=== PATIENT | male | born 1970 | race Caucasian/White ===

== ENCOUNTER 2020-05-24 11:17 | Inpatient (IN) | payer MEDICAID ==
[~2020-05-24] VITALS: Ht 180.3 cm; Wt 154.7 kg
--- NOTE | ~2020-05-24 | EC ---
PATIENT:ALISIA MYLES DATE OF SERVICE: 05/24/20 SEX: M MEDICAL RECORD: [id number] DATE OF : [birth year] LOCATION:D.M2 D.213 AGE OF PATIENT: 49 ADMISSION DATE: 05/24/20 REFERRING PHYSICIAN: INTERPRETING PHYSICIAN: ISABEL JONES MD ECHOCARDIOGRAM REPORT ECHO CHARGES 4 ECHO COMPLETE Date: 06/01/20 CLINICAL DIAGNOSIS: CHF ECHOCARDIOGRAPHIC MEASUREMENTS (adult normal given) AC root (d.<3.7cm) 2.9 cm LV Septum d (<1.2 cm> 1.1 cm Valve Excursion 1.5 cm LV Septum (systole) 1.8 cm Left Atria (s.<4.0cm> 4.9 cm LVPW d(<1.2cm) 0.9 cm RV (d.<2.3cm) 3.8 cm LVPW (sytole) 1.3 cm LV diastole(<5.6CM) 6.5 cm MV E-F(>70mm/sec) cm LV systole 4.5 cm LVOT Diameter 1.8 cm MV exc.(>10mm) cm Est.ejection fraction (50-75%) % DOPPLER: LVIT cm/sec A 62 cm/sec E 79 cm/sec LA cm/sec RVSP 15.7 mmHg LVOT 109 cm/sec AOP1/2T m/s Asc. Ao 129 cm/sec RVOT 52 cm/sec RA cm/sec PA 72 cm/sec AV Gradient Peak 6.7 mmHg AV Mean 3.8 mmHg AV Area 2.4 cm MV Gradient Peak 4.5 mmHg MV Mean 1.7 mmHg MV Area cm COMMENTS: Tube Balancer: Alysha [facility] Stab Setter And Driller: 3 Dr. Siegel TAPE# PACS Pericardial Effusion N DATE OF SERVICE: Adequate 2D, color flow imaging, spectral Doppler, and M-Mode. No LVH. LV internal dimensions are normal. Wall motion is normal. EF is greater than or equal to 55%. Aortic valve is sclerosed without evidence of stenosis by Doppler interrogation. Left atrium is dilated at 4.9 cm. Mitral valve shows no prolapse. Trivial MR. Right-sided chambers are grossly normal. Trivial TR. ECHOCARDIOGRAM REPORT [id number] ALISIA MYLES TRANSINT:[id number] Voice Confirmation ID: [id number] DOCUMENT ID: [id number] ISABEL JONES MD CC: [id number] DICTATION DATE: 06/01/20 1705 JUNIOR BOOKKEEPER: 06/01/20 2331 ADM IN [place] [id number] [place] [id number]
[2020-05-24] MEDS ORDERED: COZAAR50 MG PO (11:26)
[2020-05-24] MEDS ORDERED: K-DUR20 MEQ PO (11:26)
[2020-05-24] MEDS ORDERED: FUROSEMIDE20 MG PO (11:26)
[2020-05-24] MEDS ORDERED: NORVASC10 MG PO (11:27)
[2020-05-24] MEDS ORDERED: TOZAL SOFTGEL1 EACH PO (11:27)
[2020-05-24] MEDS ORDERED: WELLBUTRIN XL150 M1 PO (11:27)
--- NOTE | 2020-05-24 12:21 | NUR ---
PT IS RESTING WITH EYES CLOSED. OXYGEN SHUT OFF. O2 SATS 96% ROOM AIR WITH 26 BREATHS/MIN
[2020-05-24 12:30] LABS: BASOPHILS 0.1 % (0-2); EOSINOPHILS 0.1 % (0-7); IMMATURE GRANULOCYTES 0.4 % (0-5); LYMPHOCYTES 10.7 % (15-50); MCH 28.4 pg (26.0-34.0); MCHC 34.1 g/dL (31.0-37.0); MCV 83.3 fL (80.0-100.0); MEAN PLATELET VOLUME 10.4 fL (7.4-10.4); NEUTROPHILS 83.7 % (40-80); PLATELET COUNT 293 10x3/uL (130-400); RBC 5.28 10x6/uL (4.20-6.10); RDW 15.8 % (11.5-14.5); WBC 6.9 10x3/uL (4.8-10.8)
[2020-05-24 12:34] LABS: ANION GAP 18.6 mmol/L (8-16); CALCIUM 8.3 mg/dL (8.5-10.1); CARBON DIOXIDE 19.3 mmol/L (21.0-32.0); CREATININE - SERUM 4.9 mg/dL (0.6-1.3); POTASSIUM - SERUM 3.9 mmol/L (3.5-5.1)
[2020-05-24 12:40] LABS: ALBUMIN 2.5 g/dL (3.4-5.0); BILIRUBIN - TOTAL 0.51 mg/dL (0.2-1.3); PROTEIN - SERUM 8.8 g/dL (6.4-8.2)
--- NOTE | 2020-05-24 13:13 | NUR ---
REPORT TO JOSE RAINES
[2020-05-24 14:00] VITALS: BP 137/72
[2020-05-24 15:00] VITALS: BP 140/86
--- NOTE | 2020-05-24 17:30 | NUR ---
NS COMPLETED AT THIS TIME
--- NOTE | 2020-05-24 20:30 | NUR ---
PT ARRIVED TO ROOM. NO VOICED C/O OR CONCERNS. NO NEEDS EXPRESSED. CALL LIGHT IN REACH. WILL CTM.
[2020-05-24 20:59] LABS: NITRITE NEGATIVE (NEGATIVE)
[2020-05-24 21:00] LABS: AMORPHOUS SEDIMENT >1+ /lpf (NONE SEEN); BACTERIA MODERATE /hpf (NEGATIVE); BILIRUBIN NEGATIVE (NEGATIVE); EPITHELIAL CELLS 0-5 /hpf (0-5); GLUCOSE NEGATIVE (NEGATIVE); KETONE NEGATIVE (NEGATIVE); RED CELLS - URINE OCC /hpf (0-5); UROBILINOGEN NORMAL (NORMAL); WHITE CELLS - URINE OCC /hpf (NEGATIVE)
[2020-05-24 21:32] VITALS: BP 160/99
[2020-05-24 21:51] VITALS: BP 160/99; BMI 47.6
[2020-05-24 23:28] VITALS: BP 141/88
[2020-05-25 08:50] VITALS: BP 130/79
[2020-05-25 11:43] LABS: BASOPHILS 0.1 % (0-2); EOSINOPHILS 0 % (0-7); HEMATOCRIT 40.2 % (42.0-54.0); HEMOGLOBIN 13.8 g/dL (13.5-17.5); IMMATURE GRANULOCYTES 0.8 % (0-5); LYMPHOCYTES 8.6 % (15-50); MCH 28.8 pg (26.0-34.0); MCHC 34.3 g/dL (31.0-37.0); MCV 83.9 fL (80.0-100.0); MEAN PLATELET VOLUME 10.2 fL (7.4-10.4); MONOCYTES 11.7 % (2-11); NEUTROPHILS 78.8 % (40-80); PLATELET COUNT 317 10x3/uL (130-400); RBC 4.79 10x6/uL (4.20-6.10); RDW 15.9 % (11.5-14.5)
[2020-05-25 11:51] LABS: ANION GAP 16.5 mmol/L (8-16); CALCIUM 8.2 mg/dL (8.5-10.1); CREATININE - SERUM 5.1 mg/dL (0.6-1.3); POTASSIUM - SERUM 3.5 mmol/L (3.5-5.1)
[2020-05-25 12:45] VITALS: BP 128/83
--- NOTE | 2020-05-25 17:53 | NUR ---
ATTEMPTED TO START IV X2. CALLED VASCULAR ACCESS. NURSE CAME TO INSERT IV AND PT REFUSED TO COME OUT OF THE BATHROOM STATING THAT HE NEEDS TO TAKE A SHOWER BEFROE GETTING IV PLACED. EDUCATED PATIENT THAT THE VACULAR ACCESS NURSE WOULD ONLY BE HERE FOR A FEW MORE MINUTES AND HE SAID WELL THE WE WILL JUST START MEDICAITONS TOMORROW. REPORTED TO CHARGE NURSE AND TO FOOD EQUIPMENT SERVICE TECHNICIAN. FOOD EQUIPMENT SERVICE TECHNICIAN EDUCATED THIS NURSE TO PUT REFUSED ON MEDICATIONS AND TO PUT IN A NOTE
[2020-05-25 20:00] VITALS: BP 127/82
[2020-05-26 04:00] VITALS: BP 143/81
[2020-05-26 08:24] VITALS: BP 169/96
[2020-05-26 10:38] VITALS: BP 169/74
[2020-05-26 10:43] LABS: BASOPHILS 0.1 % (0-2); EOSINOPHILS 0.1 % (0-7); HEMATOCRIT 41.6 % (42.0-54.0); HEMOGLOBIN 14.3 g/dL (13.5-17.5); IMMATURE GRANULOCYTES 1.8 % (0-5); LYMPHOCYTES 14.5 % (15-50); MCH 28.9 pg (26.0-34.0); MCHC 34.4 g/dL (31.0-37.0); MEAN PLATELET VOLUME 9.7 fL (7.4-10.4); NEUTROPHILS 72.5 % (40-80); PLATELET COUNT 326 10x3/uL (130-400); RBC 4.95 10x6/uL (4.20-6.10); WBC 9.5 10x3/uL (4.8-10.8)
[2020-05-26 10:57] LABS: ANION GAP 22.4 mmol/L (8-16); CALCIUM 7.6 mg/dL (8.5-10.1); CARBON DIOXIDE 19.5 mmol/L (21.0-32.0); CREATININE - SERUM 5.4 mg/dL (0.6-1.3); MAGNESIUM - SERUM 2.3 mg/dL (1.8-2.4); PHOSPHOROUS 5.2 mg/dL (2.5-4.9); POTASSIUM - SERUM 3.9 mmol/L (3.5-5.1)
[2020-05-26] MEDS ORDERED: CARDURA2 MG PO (12:19)
[2020-05-26 15:56] VITALS: BP 166/86
--- NOTE | 2020-05-26 18:30 | NUR ---
UPON ENTERING THE ROOM. PT IN EXTREME PAIN IN HIS LOWER ABDOMEN. BLADDER SCAN SHOWED 22ML. PT STATES HE HAS ONLY URINATED ONCE TODAY. UPON DOING AN IN AND OUT CATH PT HAD 50ML OF URINE OUT PUT.
--- NOTE | 2020-05-26 19:30 | NUR ---
PT IN BED, AAO X 3, RESP EVEN AND UNLABORED. NO DISTRESS NOTED, CL IN REACH, SR UP X 2.
[2020-05-27] VITALS: BP 164/82
--- NOTE | 2020-05-27 02:45 | NUR ---
PT IN BED, AAO X 3, RESP EVEN AND UNLABORED, NO DISTRESS NOTED, CL IN REACH, SR UP X 2.
[2020-05-27 07:02] LABS: ANION GAP 19.4 mmol/L (8-16); CALCIUM 7.3 mg/dL (8.5-10.1); CARBON DIOXIDE 17.4 mmol/L (21.0-32.0); MAGNESIUM - SERUM 2.2 mg/dL (1.8-2.4); PHOSPHOROUS 5.4 mg/dL (2.5-4.9); POTASSIUM - SERUM 3.8 mmol/L (3.5-5.1)
[2020-05-27 08:02] VITALS: BP 165/80
[2020-05-27 12:30] LABS: ALBUMIN 2.4 g/dL (3.4-5.0); BILIRUBIN - DIRECT 0.1 mg/dL (0.00-0.30); BILIRUBIN - INDIRECT 0.16 mg/dL (0.00-1.00); BILIRUBIN - TOTAL 0.26 mg/dL (0.2-1.3); PROTEIN - SERUM 6.6 g/dL (6.4-8.2)
[2020-05-27 14:35] LABS: BASOPHILS 0.4 % (0-2); EOSINOPHILS 0.8 % (0-7); HEMOGLOBIN 13.8 g/dL (13.5-17.5); IMMATURE GRANULOCYTES 4.7 % (0-5); LYMPHOCYTES 16.7 % (15-50); MCH 28.3 pg (26.0-34.0); MCHC 34.5 g/dL (31.0-37.0); MEAN PLATELET VOLUME 9.5 fL (7.4-10.4); MONOCYTES 14.9 % (2-11); NEUTROPHILS 62.5 % (40-80); PLATELET COUNT 340 10x3/uL (130-400); RBC 4.88 10x6/uL (4.20-6.10); RDW 15.4 % (11.5-14.5); WBC 9.1 10x3/uL (4.8-10.8)
[2020-05-27 16:06] VITALS: BP 202/90
--- NOTE | 2020-05-27 19:30 | NUR ---
PT SETTING UP ON SIDE OF BED, AAO X 3, RESP EVEN AND UNLABORED, NO DISTRESS NOTED, NO C/O PAIN OR DISCOMFORT NOTED AT THIS TIME. CL IN REACH, SR UP X 2.
[2020-05-27 20:26] VITALS: BP 189/93
[2020-05-28 00:05] VITALS: BP 178/86
[2020-05-28 01:54] LABS: CREATININE - URINE 172.9 mg/dL (30-125); POTASSIUM - URINE 20.1 MMOL/L (12.0-62.0); PROTEIN - URINE 116.3 mg/dL (0.0-11.9)
[2020-05-28 03:34] VITALS: BP 159/87
[2020-05-28 05:50] LABS: BASOPHILS 0.1 % (0-2); EOSINOPHILS 1.6 % (0-7); HEMATOCRIT 38.6 % (42.0-54.0); HEMOGLOBIN 13.3 g/dL (13.5-17.5); IMMATURE GRANULOCYTES 4.8 % (0-5); LYMPHOCYTES 18.7 % (15-50); MCH 28.4 pg (26.0-34.0); MCHC 34.5 g/dL (31.0-37.0); MCV 82.3 fL (80.0-100.0); MONOCYTES 14.4 % (2-11); NEUTROPHILS 60.4 % (40-80); PLATELET COUNT 395 10x3/uL (130-400); RBC 4.69 10x6/uL (4.20-6.10); RDW 15.4 % (11.5-14.5); WBC 7.9 10x3/uL (4.8-10.8)
[2020-05-28 06:21] LABS: ALBUMIN 2.2 g/dL (3.4-5.0); ANION GAP 15.9 mmol/L (8-16); BILIRUBIN - TOTAL 0.38 mg/dL (0.2-1.3); CALCIUM 7.4 mg/dL (8.5-10.1); CARBON DIOXIDE 21.4 mmol/L (21.0-32.0); MAGNESIUM - SERUM 2.1 mg/dL (1.8-2.4); PHOSPHOROUS 5.1 mg/dL (2.5-4.9); POTASSIUM - SERUM 3.3 mmol/L (3.5-5.1); PROTEIN - SERUM 6.9 g/dL (6.4-8.2)
--- NOTE | 2020-05-28 09:00 | NUR ---
PT WITH COMPLAINT OF TESTICULAR SORENESS. STATES NO SWELLING. DOES NOT INTERFERE WITH VOIDING. ALSO WITHOUT BM FOR A FEW DAYS. THINKS HE IS CONSTIPATED ON LOW END, HAD MIRILAX YESTERDAY WITHOUT RESULTS.
[2020-05-28 09:17] VITALS: BP 186/101
[2020-05-28 13:36] VITALS: Ht 180.3 cm; Wt 154.7 kg
--- NOTE | 2020-05-28 19:30 | NUR ---
PT IN BED, EYES CLOSED, RESP EVEN AND UNLABORED. NO DISTRESS NOTED, CL IN REACH, SR UP X 2.
[2020-05-28 20:00] VITALS: BP 181/94
[2020-05-29 00:55] VITALS: BP 163/79
[2020-05-29 04:45] VITALS: BP 173/76
--- NOTE | 2020-05-29 05:15 | NUR ---
I have reviewed this patient and I concur with the Shift Assessment completed by the Licensed Practical Nurse today this shift.
[2020-05-29 06:05] LABS: BASOPHILS 0.1 % (0-2); EOSINOPHILS 2.2 % (0-7); HEMATOCRIT 35.7 % (42.0-54.0); HEMOGLOBIN 12.5 g/dL (13.5-17.5); IMMATURE GRANULOCYTES 5.4 % (0-5); LYMPHOCYTES 19.4 % (15-50); MCH 28.9 pg (26.0-34.0); MCV 82.4 fL (80.0-100.0); MEAN PLATELET VOLUME 9.6 fL (7.4-10.4); MONOCYTES 15.2 % (2-11); NEUTROPHILS 57.7 % (40-80); PLATELET COUNT 456 10x3/uL (130-400); RBC 4.33 10x6/uL (4.20-6.10); RDW 15.1 % (11.5-14.5); WBC 7.6 10x3/uL (4.8-10.8)
[2020-05-29 06:42] LABS: BILIRUBIN - TOTAL 0.26 mg/dL (0.2-1.3); CALCIUM 7.2 mg/dL (8.5-10.1); CARBON DIOXIDE 24.4 mmol/L (21.0-32.0); MAGNESIUM - SERUM 2.1 mg/dL (1.8-2.4); PHOSPHOROUS 4.7 mg/dL (2.5-4.9); POTASSIUM - SERUM 3.4 mmol/L (3.5-5.1); PROTEIN - SERUM 6.6 g/dL (6.4-8.2)
[2020-05-29 09:31] VITALS: BP 186/75
[2020-05-29 11:43] VITALS: BP 185/77
--- NOTE | 2020-05-29 19:30 | NUR ---
PT IN BED, AAO X 3, RESP EVEN AND UNLABORED. NO DISTRESS NOTED, CL IN REACH, SR UP X 2.
[2020-05-29 20:00] VITALS: BP 183/82
[2020-05-30 02:00] VITALS: BP 161/71
[2020-05-30 06:22] LABS: BASOPHILS 0.1 % (0-2); EOSINOPHILS 2.2 % (0-7); HEMATOCRIT 36.4 % (42.0-54.0); HEMOGLOBIN 12.6 g/dL (13.5-17.5); IMMATURE GRANULOCYTES 3.7 % (0-5); LYMPHOCYTES 20.9 % (15-50); MCH 28.6 pg (26.0-34.0); MCHC 34.6 g/dL (31.0-37.0); MCV 82.5 fL (80.0-100.0); MEAN PLATELET VOLUME 9.6 fL (7.4-10.4); MONOCYTES 14.8 % (2-11); NEUTROPHILS 58.3 % (40-80); PLATELET COUNT 529 10x3/uL (130-400); RBC 4.41 10x6/uL (4.20-6.10); WBC 6.7 10x3/uL (4.8-10.8)
[2020-05-30 06:48] LABS: ANION GAP 12.5 mmol/L (8-16); BILIRUBIN - TOTAL 0.32 mg/dL (0.2-1.3); CALCIUM 7.6 mg/dL (8.5-10.1); CREATININE - SERUM 5.5 mg/dL (0.6-1.3); MAGNESIUM - SERUM 2.2 mg/dL (1.8-2.4); PHOSPHOROUS 4.6 mg/dL (2.5-4.9); POTASSIUM - SERUM 3.5 mmol/L (3.5-5.1); PROTEIN - SERUM 6.7 g/dL (6.4-8.2)
[2020-05-30 08:11] VITALS: BP 166/78
--- NOTE | 2020-05-30 20:34 | NUR ---
CXR CONFIRMS PLACEMENT OF TRIALYSIS CATHETER
[2020-05-30 20:45] VITALS: BP 170/77
[2020-05-31 04:41] VITALS: BP 156/79
[2020-05-31 08:56] VITALS: BP 161/82
--- NOTE | 2020-05-31 08:58 | NUR ---
GAVE PT URINE SPECIMEN CUP AND EXPLAINED TO PT HOW TO COLLECT URINE SPECIMEN AND TO USE CALL LIGHT WHEN HE GETS URINE COLLECTED. PT VERBALIZED UNDERSTANDING.
[2020-05-31 10:34] LABS: ALBUMIN 2.2 g/dL (3.4-5.0); ANION GAP 11.7 mmol/L (8-16); BILIRUBIN - TOTAL 0.32 mg/dL (0.2-1.3); CALCIUM 7.8 mg/dL (8.5-10.1); CARBON DIOXIDE 29.7 mmol/L (21.0-32.0); CREATININE - SERUM 5.3 mg/dL (0.6-1.3); POTASSIUM - SERUM 3.4 mmol/L (3.5-5.1); PROTEIN - SERUM 6.8 g/dL (6.4-8.2)
[2020-05-31 12:47] LABS: CREATININE - URINE 95.8 mg/dL (30-125); PRO/CRE RATIO URINE 0.8 mg/g; PROTEIN - URINE 81.2 mg/dL (0.0-11.9)
--- NOTE | 2020-05-31 13:55 | NUR ---
Nutrition Follow-up: Pt remains in droplet isolation. Chart reviewed. Noted HD cath placed in case pt needs dialysis. Diet: Renal Wt: 341# (05/28) Labs noted: K+ 3.4, Ca 7.8, Alb 2.2 Meds noted: D5W @ 100, electrolyte protocol -Encourage PO intake and honor food preferences within diet restrictions. -Monitor wt. -RD following.
[2020-05-31 16:10] VITALS: BP 150/82
--- NOTE | 2020-05-31 18:04 | NUR ---
I have reviewed this patient and I concur with the Shift Assessment completed by the Licensed Practical Nurse today this shift.
--- NOTE | 2020-05-31 19:00 | NUR ---
EVENING ROUNDS COMPLETE. PT SITTING UP IN BED, AAOX4. NO SIGNS OF DISTRESS. PT DENIES ANY PAIN OR NEEDS AT THIS TIME. CL IN REACH, BED IN LOWEST POSITION.
[2020-05-31 20:00] VITALS: BP 164/79
[2020-06-01 04:00] VITALS: BP 168/94
[2020-06-01 06:51] LABS: BASOPHILS 0.3 % (0-2); EOSINOPHILS 2.5 % (0-7); HEMOGLOBIN 12.5 g/dL (13.5-17.5); IMMATURE GRANULOCYTES 1.5 % (0-5); LYMPHOCYTES 21.6 % (15-50); MCH 28.3 pg (26.0-34.0); MCHC 33.8 g/dL (31.0-37.0); MCV 83.7 fL (80.0-100.0); MEAN PLATELET VOLUME 9.1 fL (7.4-10.4); MONOCYTES 12.9 % (2-11); NEUTROPHILS 61.2 % (40-80); PLATELET COUNT 581 10x3/uL (130-400); RBC 4.42 10x6/uL (4.20-6.10); RDW 15.3 % (11.5-14.5); WBC 6.8 10x3/uL (4.8-10.8)
[2020-06-01 07:24] LABS: ALBUMIN 2.1 g/dL (3.4-5.0); ANION GAP 11.3 mmol/L (8-16); BILIRUBIN - TOTAL 0.3 mg/dL (0.2-1.3); CARBON DIOXIDE 27.4 mmol/L (21.0-32.0); CREATININE - SERUM 4.7 mg/dL (0.6-1.3); POTASSIUM - SERUM 3.7 mmol/L (3.5-5.1); PROTEIN - SERUM 6.9 g/dL (6.4-8.2)
[2020-06-01 08:26] VITALS: BP 137/72; BP 179/92
[2020-06-01 12:44] VITALS: BP 150/81
[2020-06-01 20:00] VITALS: BP 191/91
--- NOTE | 2020-06-01 20:00 | NUR ---
PATIENT IS RESTING IN BED. HE IS ALERT AND ORIENTED. HIS FAMILAY BROUGHT HIM FOOD INTO EAT. WE WILL CONTINUE TO MONITOR HIS RESPIRATORY STATUS.
[2020-06-02] VITALS: BP 169/90
[2020-06-02 06:35] LABS: BASOPHILS 0.3 % (0-2); EOSINOPHILS 1.8 % (0-7); HEMOGLOBIN 12.9 g/dL (13.5-17.5); IMMATURE GRANULOCYTES 0.9 % (0-5); LYMPHOCYTES 22.8 % (15-50); MCH 28.8 pg (26.0-34.0); MCHC 33.9 g/dL (31.0-37.0); MCV 84.8 fL (80.0-100.0); MEAN PLATELET VOLUME 9.2 fL (7.4-10.4); MONOCYTES 10.1 % (2-11); NEUTROPHILS 64.1 % (40-80); PLATELET COUNT 579 10x3/uL (130-400); RBC 4.48 10x6/uL (4.20-6.10); RDW 15.4 % (11.5-14.5); WBC 6.8 10x3/uL (4.8-10.8)
[2020-06-02 07:11] LABS: ALBUMIN 2.3 g/dL (3.4-5.0); BILIRUBIN - TOTAL 0.4 mg/dL (0.2-1.3); CALCIUM 8.3 mg/dL (8.5-10.1); CARBON DIOXIDE 26.9 mmol/L (21.0-32.0); CREATININE - SERUM 4.3 mg/dL (0.6-1.3); POTASSIUM - SERUM 3.9 mmol/L (3.5-5.1); PROTEIN - SERUM 6.9 g/dL (6.4-8.2)
[2020-06-02 09:57] VITALS: BP 213/103
[2020-06-02] MEDS ORDERED: METOPROLOL TART50 MG PO (12:06)
[2020-06-02] MEDS ORDERED: HYDRALAZINE HCL50 MG PO (12:06)
[2020-06-02 13:11] LABS: HEPATITIS C ANTIBODY <0.1 S/CO RAT (0.0-0.9)
--- NOTE | 2020-06-02 16:00 | NUR ---
RIGHT IJTRI CATH REMOVED AND PRESSURE APPLIED FOR 15 MINUTES. CHECKED FOR BLEEDING AND NONE NOTED. DISCHARGE PAPERS DISCUSSED AND QUESTIONS ANSWERED AND PATIENT TO CAR VIA WHEELCHAIR.
--- NOTE | 2020-06-02 17:32 | NUR ---
MILE SOLARES RN TO REMOVE TRIALYSIS. VERBAL AND WRITTEN DC INSTRUCTIONS GIVEN .
== END 2020-06-02 17:33 | disposition home or self-care (01) | DRG 177 ==
LOC: D.ER 11:17 → D.M2 17:30
PROVIDERS: Emergency Medicine; Family Medicine; Internal Medicine Nephrology; ADMIT Family Medicine Adult Medicine; ATTEND Family Medicine Adult Medicine
PROC: 02HV33Z Insertion of Infusion Device into Superior Vena Cava, Percutaneous Approach (ICD-10-PCS; principal; 2020-05-30)
DX: U07.1 COVID-19 (principal); J18.9 Pneumonia, unspecified organism; N17.9 Acute kidney failure, unspecified; E87.1 Hypo-osmolality and hyponatremia; Z68.42 Body mass index [BMI] 45.0-49.9, adult; J98.11 Atelectasis; F32.9 Major depressive disorder, single episode, unspecified; E78.5 Hyperlipidemia, unspecified; I10 Essential (primary) hypertension; E66.01 Morbid (severe) obesity due to excess calories; Z87.891 Personal history of nicotine dependence

== ENCOUNTER 2020-06-13 12:03 | Emergency (ER) | payer MEDICAID ==
[~2020-06-13 12:03] MED LIST: CARDURA2 MG PO; COZAAR50 MG PO; FUROSEMIDE20 MG PO; HYDRALAZINE HCL50 MG PO; K-DUR20 MEQ PO; METOPROLOL TART50 MG PO; NORVASC10 MG PO; TOZAL SOFTGEL1 EACH PO; WELLBUTRIN XL150 M1 PO
[2020-06-13 12:15] VITALS: Ht 180.3 cm
[2020-06-13 12:47] LABS: BASOPHILS 0.6 % (0-2); EOSINOPHILS 9.1 % (0-7); HEMATOCRIT 33.8 % (42.0-54.0); HEMOGLOBIN 11.3 g/dL (13.5-17.5); IMMATURE GRANULOCYTES 0.2 % (0-5); LYMPHOCYTES 26.5 % (15-50); MCH 28.5 pg (26.0-34.0); MCHC 33.4 g/dL (31.0-37.0); MCV 85.4 fL (80.0-100.0); MONOCYTES 15.6 % (2-11); PLATELET COUNT 259 10x3/uL (130-400); RBC 3.96 10x6/uL (4.20-6.10); RDW 15.1 % (11.5-14.5); WBC 4.8 10x3/uL (4.8-10.8)
[2020-06-13 13:40] LABS: CALC OSMOLALITY 279 mosm/kg (275-300); CALCIUM 8.4 mg/dL (8.5-10.1); CARBON DIOXIDE 21.5 mmol/L (21.0-32.0); CHLORIDE - SERUM 109 mmol/L (98-107); CREATININE - SERUM 2.1 mg/dL (0.6-1.3); GLUCOSE 104 mg/dL (74-106); POTASSIUM - SERUM 4.1 mmol/L (3.5-5.1); SODIUM 139 mmol/L (136-145); UREA NITROGEN 19 mg/dL (7-18); eGFR NON AFRICAN AMERICAN 35 mL/min (90-120)
[2020-06-13 13:55] LABS: ALBUMIN 2.6 g/dL (3.4-5.0); ALKALINE PHOSPHATASE 85 U/L (30-120); ALT (SGPT) 85 U/L (10-68); CKMB 1.2 U/L (0.0-3.6); CREATINE KINASE 104 UL (21-232); PRO BNP 429 pg/mL (0-125); PROTEIN - SERUM 7.2 g/dL (6.4-8.2)
[2020-06-13 13:56] LABS: TROPONIN-I < 0.017 ng/mL (0.000-0.060)
[2020-06-13] MEDS ORDERED: XARELTO15 MG PO (14:52)
[2020-06-13] MEDS ORDERED: MEDROL DOSE PACK4 MG PO (14:52)
[2020-06-13] MEDS ORDERED: LEVOFLOXACIN500 MG PO (14:52)
[2020-06-13 15:05] VITALS: BP 178/93
== END 2020-06-13 14:55 | disposition left against medical advice (07) ==
LOC: D.ER 12:03
PROVIDERS: Family Medicine
DX: J18.9 Pneumonia, unspecified organism (principal); I10 Essential (primary) hypertension; R79.89 Other specified abnormal findings of blood chemistry; N19 Unspecified kidney failure; R06.00 Dyspnea, unspecified; Z91.14 Patient's other noncompliance with medication regimen